=== PATIENT | female | born 1990 | race African-American/Black ===

== ENCOUNTER 2022-01-16 01:43 | Emergency (ER) | payer BC, SELFPAY ==
[2022-01-16 02:03] VITALS: BP 131/82; PULSE 120; RESP 16; TEMP 36.6; O2SAT 98; BMI 17.3
--- NOTE | 2022-01-16 02:21 | USR_ITS ---
PROCEDURE INFORMATION: Exam: US First Trimester, Transabdominal and US , Transvaginal Exam date and time: 01/16/2022 3:15 AM Age: 31 years old Clinical indication: complicated by abdominal or pelvic pain; Lower; First trimester (<14 weeks 0 days); Gestational age or lmp: 13w 6 day; ; Additional info: Vag bleeding, cramping LABS AND CLINICAL REPORTS: Gestational age (Established): 13 w 6 d Estimated due date (Established): 10/11/2021 TECHNIQUE: Imaging protocol: Real-time transabdominal obstetrical ultrasound of the maternal pelvis and a first trimester , less than 14 weeks 0 days, with image documentation. Transvaginal imaging was used for better evaluation of the fetus, adnexa, and/or cervix. COMPARISON: No relevant prior studies available. FINDINGS: Gestation: There is heterogeneous material seen within the uterine and endocervical canals, findings compatible with incomplete . There is no viable intrauterine gestation. MATERNAL: Uterus: Unremarkable. Cervix: Unremarkable. Right ovary/adnexa: Unremarkable ovary. Left ovary/adnexa: Unremarkable ovary. Intraperitoneal space: No intraperitoneal free fluid. US/US OB <= 14 weeks fetus [id number] IMPRESSION: Heterogeneous material within the uterine and endocervical canals compatible with an incomplete .
[2022-01-16 02:45] VITALS: BP 122/92; PULSE 97; RESP 20; O2SAT 100
[2022-01-16 02:50] LABS: Basophils # 0.1 10^3/uL (0.0-0.1); Basophils % 0.5 %; Eosinophils # 0.5 10^3/uL (0.0-0.8); Eosinophils % 4.7 %; Hematocrit 40.8 % (37.0-47.0); Hemoglobin 13.9 g/dL (11.5-15.3); Lymphocytes # 3.6 10^3/uL (0.8-4.8); Lymphocytes % 36.9 %; Mean Corpuscular HGB Conc 34.1 g/dL (30.0-36.0); Mean Corpuscular Hemoglobin 28.7 pg (28.0-34.0); Mean Corpuscular Volume 84.1 fl (81-99); Mean Platelet Volume 9.7 fL (7.4-10.4); Monocytes # 0.8 10^3/uL (0.2-0.9); Monocytes % 8.7 %; Nucleated Red Blood Cells % 0 %; Platelet Count 314 10^3/cmm (130-400); Red Blood Count 4.85 10^6/uL (4.1-5.3); Red Cell Distribution Width 14.7 % (12.1-15.1); White Blood Count 9.6 10^3/uL (4.0-10.0)
[2022-01-16] MEDS: sodium chloride 0.9% 1,000 ML 999 ML IV (02:55)
[2022-01-16 03:02] LABS: INR 0.99 (0.8-1.2)
[2022-01-16 03:03] LABS: Partial Thromboplastin Time 43.2 SECONDS (23.9-36.7)
[2022-01-16 03:22] LABS: Alanine Aminotransferase 12 U/L (0-33); Albumin Level 3.9 g/dL (3.5-5.2); Alkaline Phosphatase 53 U/L (35-105); Anion Gap 16.7 (5-19); Aspartate Amino Transferase 16 U/L (0-32); Blood Urea Nitrogen 7 mg/dL (6-20); Calcium 9.6 mg/dL (8.5-10.5); Carbon Dioxide 20 mmol/L (22-29); Chloride 104 mmol/L (98-107); Globulin 3.5 g/dL (1.3-4.6); Glomerular Filtration Rate 176.5 mL/min (90-130); Glucose 101 mg/dL (65-115); Osmolality Calculated 282 mOsm/kg (285-295); Potassium 3.7 mmol/L (3.5-5.1); Sodium 137 mmol/L (136-145); Total Bilirubin 0.5 mg/dL (0.15-1.2); Total Protein 7.4 g/dL (6.6-8.7)
[2022-01-16 04:12] VITALS: BP 107/85; PULSE 124; RESP 24; O2SAT 98
--- NOTE | 2022-01-16 05:14 | ED_ITS ---
Documented by User: Rico Esquivel DO 01/16/22 06:14 HPI - Female Genitourinary General: Chief complaint: Vaginal Bleeding Stated complaint: 13 Weeks Preg\ABD Pain Bleeding Time Seen by Provider: 01/16/22 02:08 History of Present Illness: Healthy 31-year-old female G1, P0 patient. She presents with brisk vaginal bleeding. She believes she is 13 weeks. Earlier yesterday, she had some spotting of dark blood. This morning, she began to cry and passed bright red blood with clots. No fever. No vomiting. She has not had an ultrasound. MD elicited complaint: vaginal bleeding and pelvic pain Pertinent past history: other Onset (ago): hour(s) Location of symptoms: pelvis Severity: moderate Female Urogenital Radiation: Suprapubic Quality of pain: cramping Consistency: intermittent Vaginal discharge: none Vaginal bleeding: heavy Relieving factors: none Associated symptoms: Reports abdominal pain and vaginal bleeding; Deny short of breath, fevers/chills, headache(s), nausea, syncope, vaginal discharge or weakness Related Data: : 1 Review of Systems Card: Denies: syncope GI: Reports: abdominal pain; Denies: nausea : Denies: vaginal discharge Neuro: Denies: headache(s) [facility] ED Female Reproductive History: : 1 Physical Exam Const: GENERAL APPEARANCE: cooperative and ill appearing (Mildly) HENMT: COMMON NORMALS: normocephalic and atraumatic HEAD & SCALP: normocephalic and atraumatic FACE & SINUS: normal facial exam Eye: COMMON NORMALS: Equal, round and reactive pupils present and EOMs intact bilaterally PUPIL: Yes Equal, round and reactive pupils present Neck/C-Spine: GENERAL: Yes trachea midline Resp: COMMON NORMALS: normal respiratory effort, No use of accessory muscles a nd clear to auscultation bilaterally AUSCULTATION: clear to auscultation bilaterally Cardio: COMMON NORMALS: regular rhythm RATE: tachycardic RHYTHM: regular rhythm GI: COMMON NORMALS: Normal to inspection, nondistended, normoactive bowel sounds present PALPATION: Yes Tenderness to palpation present (GI) (suprapubic) : SPECULUM EXAM - VAGINA: Yes vaginal bleeding SPECULUM EXAM - CERVIX: Yes Cervical os open (slightly), Yes Cervical bleeding and Yes Other cervical findings present (tissuein vaginal vault with clots. removed) OB/EXTERNAL & SPECULUM: external exam normal, Active bleeding present small/minimal, Cervical os open (slightly) and vaginal bleeding MANUAL OB EXAM: Deferred manual OB exam Neuro: AMI COMA SCALE: document GCS findings [place] coma scale eye opening: Spontaneous [place] coma scale verbal response: Orientated [place] coma scale motor response: Obey commands [place] coma scale total score: 15 Course Vital Signs: Vital signs: Vital Signs Temperature 97.8 F 01/16/22 02:03 Pulse Rate 96 01/16/22 05:30 Respiratory Rate 19 H 01/16/22 05:30 Blood Pressure 111/73 01/16/22 05:30 Pulse Oximetry 100 01/16/22 05:30 Oxygen Delivery Me thod 01/16/22 05:30 MDM - Female Medical Decision Making She will be checked out to .Bleeding has slowed steadily since removal of clot and tissue from the vaginal vault and cervix. Ultrasound shows an incomplete . Hemoglobin is 14. Blood pressures been normal. Currently 109/70. The patient is no longer tachycardic. Saturations are 100%. Her cramping has reduced in severity. She has received a liter of fluid. 0611: Despite evacuation of her vaginal vault and cervix, bleeding continues. Repeating a CBC now. If she is dropped significantly, will observe. Darrell at shift change to follow-up on CBC result. Lab Data : 01/16/22 06:20 01/16/22 02:43 Radiology Impressions Ultrasound 01/16/22 02:21 IMPRESSION: Heterogeneous material within the uterine and endocervical canals compatible with an incomplete . Laboratory Results WBC 9.8 10^3/uL (4.0-10.0) 01/16/22 06:20 RBC 4.07 10^6/uL (4.1-5.3) L 01/16/22 06:20 Hgb 11.6 g/dL (11.5-15.3) 01/16/22 06:20 Hct 34.4 % (37.0-47.0) L 01/16/22 06:20 MCV 84.5 fl (81-99) 01/16/22 06:20 MCH 28.5 pg (28.0-34.0) 01/16/22 06:20 MCHC 33.7 g/dL (30.0-36.0) 01/16/22 06:20 RDW 14.7 % (12.1-15.1) 01/16/22 06:20 Plt Count 254 10^3/cmm (130-400) 01/16/22 06:20 MPV 9.3 fL (7.4-10.4) 01/16/22 06:20 Neut % (Auto) 77.6 % 01/16/22 06:20 Lymph % (Auto) 15.6 % 01/16/22 06:20 Wheeler % (Auto) 5.4 % 01/16/22 06:20 Eos % (Auto) 0.7 % 01/16/22 06:20 Baso % (Auto) 0.4 % 01/16/22 06:20 Neut # (Auto) 7.57 10^3/uL (1.8-7.7) 01/16/22 06:20 Lymph # (Auto) 1.5 10^3/uL (0.8-4.8) 01/16/22 06:20 Wheeler # (Auto) 0.5 10^3/uL (0.2-0.9) 01/16/22 06:20 Eos # (Auto) 0.1 10^3/uL (0.0-0.8) 01/16/22 06:20 Baso # (Auto) 0.0 10^3/uL (0.0-0.1) 01/16/22 06:20 Nucleated RBC % (auto) 0 % 01/16/22 06:20 Nucleated RBCs # 0.0 /100WBC 01/16/22 06:20 PT 13.40 SECONDS (12.1-14.9) 01/16/22 02:43 INR 0.99 (0.8-1.2) 01/16/22 02:43 APTT 43.2 SECONDS (23.9-36.7) H 01/16/22 02:43 Sodium 137 mmol/L (136-145) 01/16/22 02:43 Potassium 3.7 mmol/L (3.5-5.1) 01/16/22 02:43 Chloride 104 mmol/L (98-107) 01/16/22 02:43 Carbon Dioxide 20 mmol/L (22-29) L 01/16/22 02:43 Anion Gap 16.7 (5-19) 01/16/22 02:43 BUN 7 mg/dL (6-20) 01/16/22 02:43 Creatinine 0.5 mg/dL (0.5-0.9) 01/16/22 02:43 GFR Calculation 176.5 mL/min (90-130) H 01/16/22 02:43 Glucose 101 mg/dL (65-115) 01/16/22 02:43 Calculated Osmolality 282 mOsm/kg (285-295) L 01/16/22 02:43 Calcium 9.6 mg/dL (8.5-10.5) 01/16/22 02:43 Total Bilirubin 0.5 mg/dL (0.15-1.2) 01/16/22 02:43 AST 16 U/L (0-32) 01/16/22 02:43 ALT 12 U/L (0-33) 01/16/22 02:43 Alkaline Phosphatase 53 U/L (35-105) 01/16/22 02:43 Total Protein 7.4 g/dL (6.6-8.7) 01/16/22 02:43 Albumin 3.9 g/dL (3.5-5.2) 01/16/22 02:43 Globulin 3.5 g/dL (1.3-4.6) 01/16/22 02:43 Ser , Semi-Qnt 9245.00 mIU/mL 01/16/22 02:43 Blood Type B Positive 01/16/22 02:53 Rho(D) Type Positive 01/16/22 02:53 Antibody Screen Negative 01/16/22 02:53 Discharge Plan Discharge Patient Disposition: Home Clinical Impression: Incomplete Condition: Stable Prescriptions: New ketorolac 10 mg tablet 10 mg PO TID PRN (Reason: pain) Qty: 10 0RF ondansetron 4 mg film 4 mg PO DAILY PRN (Reason: nausea and vomiting) Qty: 10 0RF No Action One Daily 28 mg iron- 800 mcg Combo Pack 1 pkg PO DAILY Discharge Orders: Discharge ED (Routine); Ordered 01/16/22 Ordered By: Anibal Ramírez Discharge Diet: Advance as tolerated Discharge Activity: Increase activity as tolerated Patient Instructions: Miscarriage (ED) Activity Restrictions/Additional Instructions: Follow-up with your doctor in 2-3 days for a blood count, and test to ensure quantitative numbers are falling appropriately. Return for brisk bleeding, worsening pain, fever greater than 100, vomiting liquids or medications, other concerning symptoms. Coding Level of Care Code ED Psychologist for Chg Fwd Exam Comprehensive Documented by User: Anibal Ramírez DO 01/16/22 07:55 HPI - Female Genitourinary General: Chief complaint: Vaginal Bleeding Stated complaint: 13 Weeks Preg\ABD Pain Bleeding Time Seen by Provider: 01/16/22 02:08 Physical Exam Neuro: AMI COMA SCALE: document GCS findings [place] coma scale total score: 15 Course Vital Signs: Vital signs: Vital Signs Temperature 97.8 F 01/16/22 02:03 Pulse Rate 96 01/16/22 05:30 Respiratory Rate 19 H 01/16/22 05:30 Blood Pressure 111/73 01/16/22 05:30 Pulse Oximetry 100 01/16/22 05:30 Oxygen Delivery Me thod 01/16/22 05:30 MDM - Female Medical Decision Making She will be checked out to .Bleeding has slowed steadily since removal of clot and tissue from the vaginal vault and cervix. Ultrasound shows an incomplete . Hemoglobin is 14. Blood pressures been normal. Currently 109/70. The patient is no longer tachycardic. Saturations are 100%. Her cramping has reduced in severity. She has received a liter of fluid. 0611: Despite evacuation of her vaginal vault and cervix, bleeding continues. Repeating a CBC now. If she is dropped significantly, will observe. Darrell at shift change to follow-up on CBC result. 31-year-old female signed out to me pending CBC. Patient did have some drop in CBC from baseline. However patient notes significant decrease in amount of vaginal bleeding. Patient observed for several hours with continued decrease. Discussed admission versus discharge. Patient wishing to be discharged home. Strict return precautions were given. Patient verbalized understanding. Recommended follow-up with her OB as an outpatient. Lab Data : 01/16/22 06:20 01/16/22 02:43 Radiology Impressions Ultrasound 01/16/22 02:21
[2022-01-16 05:30] VITALS: BP 111/73; PULSE 96; RESP 19; O2SAT 100
[2022-01-16 06:24] LABS: Basophils % 0.4 %; Eosinophils # 0.1 10^3/uL (0.0-0.8); Eosinophils % 0.7 %; Hematocrit 34.4 % (37.0-47.0); Hemoglobin 11.6 g/dL (11.5-15.3); Lymphocytes # 1.5 10^3/uL (0.8-4.8); Lymphocytes % 15.6 %; Mean Corpuscular HGB Conc 33.7 g/dL (30.0-36.0); Mean Corpuscular Hemoglobin 28.5 pg (28.0-34.0); Mean Corpuscular Volume 84.5 fl (81-99); Mean Platelet Volume 9.3 fL (7.4-10.4); Monocytes # 0.5 10^3/uL (0.2-0.9); Monocytes % 5.4 %; Neutrophils # 7.57 10^3/uL (1.8-7.7); Neutrophils % 77.6 %; Nucleated Red Blood Cells % 0 %; Platelet Count 254 10^3/cmm (130-400); Red Blood Count 4.07 10^6/uL (4.1-5.3); Red Cell Distribution Width 14.7 % (12.1-15.1); White Blood Count 9.8 10^3/uL (4.0-10.0)
[2022-01-16 08:00] VITALS: BP 127/85; PULSE 128; RESP 21; O2SAT 98
== END 2022-01-16 08:02 | disposition home or self-care (01) ==
PROVIDERS: Emergency Provider Emergency Medicine
DX: O03.4 Incomplete spontaneous abortion without complication (principal)
CPT/HCPCS: 76801; 80053; 84702; 85025; 85610; 85730; 86850; 86900; 96360; 99284; J7030

== ENCOUNTER 2022-01-16 09:27 | Emergency (ER) | payer BC, SELFPAY ==
[2022-01-16] VITALS (9 sets, daily range): BP systolic 81–119; BP diastolic 49–80; PULSE 60–112; RESP 16; TEMP 36.7; O2SAT 96–100; BMI 17.3
--- NOTE | 2022-01-16 10:35 | ED_ITS ---
HPI - Female Genitourinary General: Chief complaint: Vaginal Bleeding Stated complaint: vaginal bleeding, dizzy Time Seen by Provider: 01/16/22 10:21 History of Present Illness: 31-year-old female actively miscarriage doing presenting today with continued vaginal bleeding. Patient was seen this morning by me. Which point she was offered admission versus discharge. Noting that sin ce she is gone home she has had significant bleeding is continuing the getting worsening lightheadedness. She denies chest pain or shortness of breath. She denies abdominal pain. She notes bleeding is been consistent. Which she is already gone through 3 more pads since discharge. Review of Systems General: Reports: 10 or more systems reviewed and unremarkable except in HPI and below Physical Exam Const: COMMON NORMALS: no acute distress, patient oriented x3 and alert GENERAL APPEARANCE: cooperative ORIENTATION/CONSCIOUSNESS: Yes awake, Yes oriented to person, Yes oriented to place and Yes oriented to time HENMT: COMMON NORMALS: normocephalic, atraumatic, external ears normal, Normal external nose present and moist oral mucous membranes HEAD & SCALP: normal to inspection, normocephalic and atraumatic NOSE: Normal external nose present GENERAL EAR: hearing grossly impaired EXTERNAL EAR: Yes external ears normal Eye: COMMON NORMALS: Equal, round and reactive pupils present, EOMs intact bilaterally, conjunctivae normal and no scleral icterus GENERAL EYE: appearance normal, both eyes and all related structures EYELID: eyelids normal CONJUNCTIVA: Yes conjunctivae normal SCLERA: sclerae normal PUPIL: Yes Equal, round and reactive pupils present Neck/C-Spine: COMMON NORMALS: full ROM, supple and no JVD GENERAL: Yes normal visual inspection Lymph: LYMPHATIC: no lymphadenopathy noted and no lymphedema noted Chest: COMMONS NORMALS: normal inspection of the chest Resp: COMMON NORMALS: normal respiratory effort, No retractions and No use of accessory muscles Cardio: COMMON NORMALS: no JVD, regular rate and regular rhythm RATE: regular rate RHYTHM: regular rhythm GI: COMMON NORMALS: Normal to inspection, nondistended, normoactive bowel sounds present : COMMON NORMALS: Yes no CVA tenderness BLADDER/KIDNEY EXAM: Yes no CVA tenderness Back/Pelvis: COMMON NORMALS: no CVA tenderness and thoracic and lumbar spine normal to inspection Extremity: COMMON NORMALS: normal to inspection, full ROM and capillary refill normal GENERAL: Yes normal exam except as noted Neuro: COMMON NORMALS: patient oriented x3, CN's II-XII intact bilaterally, moves all extremities, no focal motor deficits, no sensory deficits noted and gait normal SENSORIUM/ORIENTATION: Yes alert, Yes oriented to person, Yes or iented to place and Yes oriented to time Psych: COMMON NORMALS: mental status grossly normal, Normal thought process present, cooperative and normal affect THOUGHT PROCESS: Normal thought process present Skin: COMMON NORMALS: no rashes or lesions noted and no wounds GENERAL SKIN EXAM: no rashes or lesions noted Course Vital Signs: Vital signs: Vital Signs Temperature 98.0 F 01/16/22 10:12 Pulse Rate 98 01/16/22 12:00 Respiratory Rate 16 01/16/22 10:12 Blood Pressure 100/61 01/16/22 12:00 Pulse Oximetry 100 01/16/22 12:00 Oxygen Delivery Me thod 01/16/22 12:00 MDM - Female Medical Decision Making 31-year-old female presenting today with vaginal bleeding. CBC with evidence of a four-point drop in hemoglobin since initial. Spoke to OB on-call who will come in and see the patient in the emergency room. Patient admitted in stable condition to OB. Lab Data : 01/16/22 12:20 Laboratory Results WBC 10.1 10^3/uL (4.0-10.0) H 01/16/22 12:20 Corrected WBC Cancelled 01/16/22 11:05 RBC 3.40 10^6/uL (4.1-5.3) L 01/16/22 12:20 Hgb 9.7 g/dL (11.5-15.3) L 01/16/22 12:20 Hct 29.4 % (37.0-47.0) L 01/16/22 12:20 MCV 86.5 fl (81-99) 01/16/22 12:20 MCH 28.5 pg (28.0-34.0) 01/16/22 12:20 MCHC 33.0 g/dL (30.0-36.0) 01/16/22 12:20 RDW 14.6 % (12.1-15.1) 01/16/22 12:20 Plt Count 197 10^3/cmm (130-400) 01/16/22 12:20 MPV 9.8 fL (7.4-10.4) 01/16/22 12:20 Gran % Cancelled 01/16/22 11:05 Neut % (Auto) 83.3 % 01/16/22 12:20 Lymph % (Auto) 11.1 % 01/16/22 12:20 Cochran % (Auto) 5.0 % 01/16/22 12:20 Eos % (Auto) 0.1 % 01/16/22 12:20 Baso % (Auto) 0.2 % 01/16/22 12:20 Neut # (Auto) 8.37 10^3/uL (1.8-7.7) H 01/16/22 12:20 Lymph # (Auto) 1.1 10^3/uL (0.8-4.8) 01/16/22 12:20 Cochran # (Auto) 0.5 10^3/uL (0.2-0.9) 01/16/22 12:20 Eos # (Auto) 0.0 10^3/uL (0.0-0.8) 01/16/22 12:20 Baso # (Auto) 0.0 10^3/uL (0.0-0.1) 01/16/22 12:20 Absolute Gran (auto) Cancelled 01/16/22 11:05 Nucleated RBC % (auto) 0 % 01/16/22 12:20 Nucleated RBCs # 0.0 /100WBC 01/16/22 12:20 Discharge Plan Discharge Patient Disposition: Admitted As Inpatient Clinical Impression: Incomplete , Vaginal bleeding Condition: Stable Coding Level of Care Code ED Starcher And Tenter Range Feeder for Chg Fwd Exam Comprehensive
[2022-01-16] MEDS: sodium chloride 0.9% 1,000 ML 999 ML IV (12:15)
[2022-01-16 12:47] LABS: Basophils % 0.2 %; Eosinophils % 0.1 %; Hematocrit 29.4 % (37.0-47.0); Hemoglobin 9.7 g/dL (11.5-15.3); Lymphocytes # 1.1 10^3/uL (0.8-4.8); Lymphocytes % 11.1 %; Mean Corpuscular Hemoglobin 28.5 pg (28.0-34.0); Mean Corpuscular Volume 86.5 fl (81-99); Mean Platelet Volume 9.8 fL (7.4-10.4); Monocytes # 0.5 10^3/uL (0.2-0.9); Neutrophils # 8.37 10^3/uL (1.8-7.7); Neutrophils % 83.3 %; Nucleated Red Blood Cells % 0 %; Platelet Count 197 10^3/cmm (130-400); Red Cell Distribution Width 14.6 % (12.1-15.1); White Blood Count 10.1 10^3/uL (4.0-10.0)
--- NOTE | 2022-01-16 13:54 | PM.CONSULT ---
Providers/Reason For Consult Consulting Physician/Specialty*: Silvia Ely MD Reason for Consult*: Missed with heavy vaginal bleeding Requesting Physician: Anibal Ramírez MD History of Present Illness History of Present Illness Lela Cohn is a 31 year old female at 12 weeks gestation by last menstrual period, who presented to the ER with complaints of heavy vaginal bleeding. She was seen and examined. She felt like her bleeding had significantly decreased. Her hemoglobin had decreased from 13.9 to 11.6. She requested to be discharged to home. Once home, her bleeding picked up and she soaked three pads in two hours. She returned. This time, her hemoglobin was 9.6. I was asked to do a consultation. She reports that she had not initiated care yet, as she is a travelling [employer] from [place]. Her insurance is from [place] and no one would take it here. She was planning on initiating care when she got home. She denies any health issues. This is her first . She reports again that she thinks the bleeding has slowed down. She is unsure if she has passed any products. She reports that they just looked like large clots. When asked about pain, she reports that she has had some strong menstrual cramps, but now those have even subsided. Review of Systems General: Reports: 10 or more systems reviewed and unremarkable except in HPI and below Medications/Allergies Home Medications Medication Instructions Recorded Confirmed Last Taken Type ketorolac 10 mg tablet 10 mg PO TID PRN pain #10 tabs 01/16/22 Unknown Rx ondansetron 4 mg oral soluble film 4 mg PO DAILY PRN nausea and 01/16/22 Unknown Rx vomiting #10 ea vits 75-iron 28 mg-folic 1 pkg PO DAILY 01/16/22 01/16/22 Unknown History acid 800 mcg-omega-3 oral combo pack Allergies Allergy/AdvReac Type Severity Reaction Status Date / Time No Known Allergies Allergy Verified 01/16/22 02:02 PFSH Acute Female Reproductive History: : 1 Vitals/I&O/Wt Last Vital Signs Temp 98.0 F 01/16/22 10:12 Pulse 98 01/16/22 12:00 Resp 16 01/16/22 10:12 BP 100/61 01/16/22 12:00 Pulse Ox 100 01/16/22 12:00 O2 Del Method 01/16/22 12:00 Weight last 48 hrs Weight 98 lb Physical Exam Const: COMMON NORMALS: no acute distress, patient oriented x3, no limitations, healthy appearing, alert and well nourished GENERAL APPEARANCE: cooperative, comfortable, well kempt and well developed NUTRITIONAL APPEARANCE: thin Resp: COMMON NORMALS: normal respiratory effort EFFORT & INSPECTION: Yes able to speak in complete sentences GI: COMMON NORMALS: Soft to palpation and non-tender PALPATION: Yes Soft to palpation : COMMON NORMALS: Yes normal external appearance, Yes normal appearance of the cervix, Yes normal bimanual exam, Yes No adnexal tenderness and Yes no masses SPECULUM EXAM - VAGINA: Yes vaginal bleeding (moderate sized clot with placenta attached.) BIMANUAL EXAM - VAGINA & UTERUS: Yes normal bimanual exam OB/EXTERNAL & SPECULUM: vaginal bleeding (moderate sized clot with placenta attached.) OTHER: On speculum exame, there is a moderate clot that is removed. On inspection, there is placental tissue attached. The cervical os is closed and there is no bleeding at all. Extremity: COMMON NORMALS: no calf tenderness Neuro: COMMON NORMALS: patient oriented x3 SENSORIUM/ORIENTATION: Yes alert Psych: COMMON NORMALS: mental status grossly normal, Normal thought process present, cooperative, normal affect and speech normal APPEARANCE: Yes well kempt SPEECH: Yes normal speech THOUGHT PROCESS: Normal thought process present Data : 01/16/22 12:20 US OB: My impression: FINDINGS: Gestation: There is heterogeneous material seen within the uterine and endocervical canals, findings compatible with incomplete . There is no viable intrauterine gestation. MATERNAL: Uterus: Unremarkable. Cervix: Unremarkable. Right ovary/adnexa: Unremarkable ovary. Left ovary/adnexa: Unremarkable ovary. Intraperitoneal space: No intraperitoneal free fluid. US/US OB <= 14 weeks fetus [id number] IMPRESSION: Heterogeneous material within the uterine and endocervical canals compatible with an incomplete . A&P Assessment and plan (1) Complete : The patient has completed her miscarriage. She is advised to call or return if she has heavy bleeding, develops pain, a fever or foul smelling discharge. She has been advised to continue vitamins and take iron daily. Status: Acute Consult Attestations Time Spent in Patient Care: Greater than 35 minutes Coding Level of Care Code Acute Spray Machine Tender for Chg Fwd Diagnoses Complete O03.9
== END 2022-01-16 14:44 | disposition home or self-care (01) ==
PROVIDERS: Emergency Provider Emergency Medicine
DX: O03.4 Incomplete spontaneous abortion without complication (principal)
CPT/HCPCS: 85025; 88305; 96360; 99284; E0352; J7030